=== PATIENT | male | born 1990 | race Caucasian/White ===

== ENCOUNTER 2019-09-15 21:47 | Emergency (ER) | payer MEDICAID ==
[~2019-09-15] VITALS: Ht 167.6 cm; Wt 91.2 kg
[2019-09-15 21:54] VITALS: BP 162/90
--- NOTE | 2019-09-15 21:56 | NUR ---
PT AMBULATED TO BED #6
--- NOTE | 2019-09-15 22:00 | NUR ---
29 y/o male c/o of chest pain x 8hrs. rates pain 0/10 and denies any pain at this moment but prior to er visit he describes it as pressure feeling and it is nonradiating. lung sounds clear all throughout. heart sounds s1s2 present. no edema, sob, n,v, or fever present. vss. a&ox4. steady gait. denies taking any pain meds. pt skin is warm to touch. nka. no pmh.
[2019-09-15 22:05] VITALS: BP 162/90
--- NOTE | 2019-09-15 22:44 | NUR ---
Patient discharged with v/s stable. Written and verbal after care instructions given and explained. Patient verbalized understanding. Ambulatory with steady gait. All questions addressed prior to discharge. Advised to follow up with PMD.
== END 2019-09-15 22:44 | disposition home or self-care (01) ==
LOC: MED 21:47
DX: R00.2 Palpitations (principal); F17.210 Nicotine dependence, cigarettes, uncomplicated
CPT/HCPCS: 93005; 99283

== ENCOUNTER 2021-08-15 21:34 | Emergency (ER) | payer MEDICAID, OTHER ==
[~2021-08-15] VITALS: Ht 167.6 cm; Wt 86.2 kg
[2021-08-15 21:45] VITALS: BP 102/68
[2021-08-15] MEDS ORDERED: LIDOCAINE MPF 1% 10 MG/ML VIAL INJ ONE (22:30)
[2021-08-15 23:26] VITALS: BP 102/68
== END 2021-08-15 23:26 | disposition home or self-care (01) ==
LOC: MED 21:34
DX: S51.811A Laceration without foreign body of right forearm, initial encounter (principal); W25.XXXA Contact with sharp glass, initial encounter; Y93.89 Activity, other specified; Y92.89 Other specified places as the place of occurrence of the external cause; Y99.8 Other external cause status
CPT/HCPCS: 12004; 90471; 90715; 99283; J2001

== ENCOUNTER 2021-08-27 21:13 | Emergency (ER) | payer OTHER ==
[~2021-08-27] VITALS: Ht 167.6 cm; Wt 86.2 kg
[2021-08-27 21:35] VITALS: BP 129/66
--- NOTE | 2021-08-27 21:38 | NUR ---
TO LOBBY A/W BED AMBULATORY
--- NOTE | 2021-08-27 22:19 | NUR ---
DR MIRANDA AT BEDSIDE EXAMINING PT
[2021-08-27] MEDS ORDERED: BACITRACIN OINT 500 UNITS/GM PKT TP ONE (22:25)
--- NOTE | 2021-08-27 22:33 | NUR ---
31 Y/O MALE BIBS FROM HOME. C/O SUTURE REMOVAL. PT HAD STITCHES PLACE 12 DAYS AGO FOR LAC TO RIGHT FOREARM. PT DENIES PAIN OR FEVER. UNLABORED BREATHING; A/OX4, GCS-15; AMBULATORY. DENIES PMH/RX NO MEDS
--- NOTE | 2021-08-27 22:41 | NUR ---
SENIOR DIRECTOR INSIGHT AT BEDSIDE
[2021-08-27 22:58] VITALS: BP 126/70
--- NOTE | 2021-08-27 22:59 | NUR ---
Patient discharged with v/s stable. Written and verbal after care instructions given and explained. Patient verbalized understanding. Ambulatory with steady gait. All questions addressed prior to discharge. Advised to follow up with PMD. VSS, A/OX4, UNLABORED BREATHING, AMBULATORY, AND CALM DEMEANOR.
== END 2021-08-27 22:50 | disposition home or self-care (01) ==
LOC: MED 21:13
DX: S51.811D Laceration without foreign body of right forearm, subsequent encounter (principal); Z48.02 Encounter for removal of sutures; W25.XXXD Contact with sharp glass, subsequent encounter
CPT/HCPCS: 99282